=== PATIENT | female | born 1935 | race Caucasian/White ===

== ENCOUNTER → 2016-10-13 | Outpatient (CLI) | payer OTHER | LOC: GIMAGING 10:02 | PROVIDERS: ATTEND Family Medicine | DX: G89.18 Other acute postprocedural pain (principal); Z96.642 Presence of left artificial hip joint | CPT/HCPCS: 73551-PO ==

== ENCOUNTER 2018-08-04 09:41 | Observation (INO) | payer OTHER | END 2018-08-05 12:54 | disposition home or self-care (01) | LOC: F1N 13:07 ==